=== PATIENT | female | born 1955 | race Caucasian/White ===

== ENCOUNTER 2016-08-05 08:31 | Day surgery (SDC) | payer OTHER ==
[~2016-08-05] VITALS: Ht 160 cm; Wt 55.0 kg
[~2016-08-05 08:31] MED LIST: 0.9% Sodium Chloride 1,000 ML IV SCH; CHOL10008 PO; LOVA40TA PO; OMEG1CAP25 PO; RIZA10TA28 PO; Sodium Chloride LOK Flush 10 mL Syringe IV PRN; TOPI50TA88 PO; UBID30CA12 PO; fentaNYL-PF 50 mCg/mL 2 mL Inj IVPUSH PRN
[2016-08-05 08:58] VITALS: BP 128/81; PULSE 91; RESP 16; O2SAT 98
--- NOTE | 2016-08-05 10:30 | PCM.ENDCOL ---
Colonoscopy Date of Service: Aug 05, 2016 Physician Shade Cervantes MD Pre Procedure Diagnosis: Screening Post Procedure Dx & Findings: Polyp hemorrhoids Procedure Colonoscopy PROCEDURE IN DETAIL: Prep adequate Withdrawal time 12 minutes After unremarkable rectal examination the Olympus video colonoscope was inserted patient's anal canal and was advanced to cecum. Landmarks were identified including the ileocecal valve and appendiceal orifice. Scope was withdrawn systematically. Visualized colonic mucosa showed healthy shiny mucosa with normal healthy-appearing vasculature. In the transverse colon, there was a 2 mm polyp which was removed completely using snare. In the rectum retroflexion was done which showed hemorrhoids. Anal canal was inspected carefully on the way out and hemorrhoids noted. Impression Polyp 1 STATUS POST COMPLETE REMOVAL Hemorrhoids Recommendation Repeat colonoscopy 5 years Presedation Assessment Risks and Benefits Informed consent was obtained from the patient after all risks and benefits including but not limited to drug reaction, infection, pain, bleeding, perforation, as well as alternatives were discussed. Patient monitoring Continuous pulse oximetry, cardiac monitoring, blood pressure monitoring, IV access, and oxygen at 2L per nasal cannula. Periprocedural Fentanyl: Fentanyl 100mcg Incrementally Midazolam: Midazolam 5mg Incrementally Complications There were no periprocedural complications identified. Post Procedure Plan Post Procedure Recommendations 1. Restrict activities today. 2. Resume normal activities in the morning. 3. Resume medications. 4. Patient informed of normal post procedure side effects as bloating, drowsiness, blood streaking in the stool. 5. average risk CRCS. If colon polyps come back as: -Hyperplastic- can repeat colonoscopy in 10 years -Tubular adenoma- repeat colonoscopy in 5 years -Tubulovillous/villous adenoma- repeat colonoscopy in 3 years -If any dysplasia- return to clinic as soon as possible 6. Please don't hesitate to call me with any questions. Shade Cervantes MD Aug 05, 2016 10:30
[2016-08-05 10:32] VITALS: BP 105/64; PULSE 60; RESP 14; O2SAT 100
[2016-08-05 10:42] VITALS: BP 114/68; PULSE 69; RESP 14; O2SAT 100
[2016-08-05 10:51] VITALS: BP_SYST 104; BP_SYST 94; BP_DIAS 61; BP_DIAS 66; PULSE 65; RESP 16; O2SAT 100
--- NOTE | 2016-08-06 10:56 | PATH ---
SURGICAL PATHOLOGY Attending Physician:Shade Cervantes M.D. CASE STATUS: Signed Out PATIENT NAME: JAMARI POST PID: [id number] : 1955 DATE COLLECTED:08/05/2016 16:52 SPECIMEN: Colon, Biopsy CLINICAL HISTORY: 1). TRANSVERSE COLON POLYP FINAL DIAGNOSIS: 1.TRANSVERSE COLON POLYP: SESSILE SERRATED ADENOMA. ICD10 CODE D12.3 GROSS DESCRIPTION: The specimen is received in one formalin filled container labeled with the patient's name, sublabeled "transverse colon polyp" and consists of a 0.3 x 0.2 x 0.2 CM portion of tissue which is entirely submitted in one cassette. 08/05/2016 DAC MICRO DESCRIPTION: See diagnosis. ICD-9 CODES: CPT CODES: 1: 99739 Electronically Signed Out Rober Mari MD [facility] [address], [place] [address] Technical component performed at [facility], [facility] [address], [place], [address]
== END 2016-08-05 23:59 | disposition home or self-care (01) ==
LOC: END 08:31
PROVIDERS: ATTEND Internal Medicine
DX: Z12.11 Encounter for screening for malignant neoplasm of colon (principal); D12.3 Benign neoplasm of transverse colon; K64.8 Other hemorrhoids; E78.5 Hyperlipidemia, unspecified; Z85.828 Personal history of other malignant neoplasm of skin
CPT/HCPCS: 45385; 99153; G0500; J2250; J3010; J7030